=== PATIENT | male | born 1950 | race Caucasian/White ===

== ENCOUNTER → 2021-04-13 14:42 | Outpatient (BNVA) | payer MEDICARE, BC, SELFPAY | PROVIDERS: Referring Provider Student in an Organized Health Care Education/Training Program; Visit Provider Specialist | DX: R41.1 Anterograde amnesia (principal); F41.9 Anxiety disorder, unspecified; F07.81 Postconcussional syndrome; S06.9X9S Unspecified intracranial injury with loss of consciousness of unspecified duration, sequela; Z87.891 Personal history of nicotine dependence; Y93.9 Activity, unspecified | CPT/HCPCS: 96116; 99204; 99205 ==

== ENCOUNTER 2021-05-19 11:18 | Outpatient (CLI) | payer MEDICARE, BC, SELFPAY ==
--- NOTE | 2021-05-19 11:45 | MR_ITS ---
WS: [id number] MRI HEAD WITHOUT CONTRAST TECHNIQUE: Sagittal T1, T2 axial, T2 axial FLAIR, axial and coronal T1 images, axial susceptibility w eighted imaging, axial diffusion weighted images, and coronal T2 images were obtained. CLINICAL INFORMATION: R41.82 - Altered mental status, unspecified COMPARISON: None. FINDINGS: No evidence of restricted diffusion to suggest acute ischemia. Ventricular system and basal cisterns are patent. Normal posterior fossa. Normal vascular flow voids at the skull base. No extra-axial flui d collections. No evidence of mass or mass effect. Paranasal sinuses are well aerated. Moderate patchy supratentorial white matter changes compatible with small vessel disease. Mild parenc hymal volume loss. No hemosiderin on susceptibly weighted images. Normal optic chiasm and pituitary i nfundibulum. Incidental small hippocampal sulcal cysts. Temporal lobes hippocampal formations are nor mal in appearance. Mostly empty sella. Visualized upper cervical canal is patent. MR/MR head wo con* [id number] IMPRESSION: 1. No evidence of restricted diffusion to suggest acute ischemia. 2. Moderate small vessel changes with mild parenchymal volume loss. 3. Temporal lobes and hippocampal formations are normal in appearance. 4. Normal optic chiasm and pituitary infundibulum. 5. No hemosiderin on susceptibly weighted images.
== END 2021-05-19 11:19 | disposition home or self-care (01) ==
LOC: RADSHAW 11:30
PROVIDERS: Visit Provider Specialist
DX: R41.82 Altered mental status, unspecified (principal)
CPT/HCPCS: 70551

== ENCOUNTER → 2021-06-14 09:43 | Outpatient (BNVA) | payer MEDICARE, BC, SELFPAY | PROVIDERS: PCP Student in an Organized Health Care Education/Training Program; Referring Provider Specialist; Visit Provider Specialist | DX: R56.9 Unspecified convulsions (principal); S06.9X9S Unspecified intracranial injury with loss of consciousness of unspecified duration, sequela; Y93.9 Activity, unspecified; Z87.891 Personal history of nicotine dependence | CPT/HCPCS: 95816 ==

== ENCOUNTER 2021-08-06 10:13 | Outpatient (CLI) | payer MEDICARE, BC, SELFPAY ==
--- NOTE | 2021-08-06 11:00 | MR_ITS ---
WS: [id number] MRI HEAD WITHOUT CONTRAST TECHNIQUE: Sagittal T1, T2 axial, T2 axial FLAIR, axial and coronal T1 images, axial susceptibility w eighted imaging, axial diffusion weighted images, and coronal T2 images were obtained. CLINICAL INFORMATION: S06.9X9A - Unspecified intracranial injury with loss of c... COMPARISON: MRI May 19, 2021 FINDINGS: No evidence of restricted diffusion to suggest acute ischemia. Ventricular system and basal cisterns are patent. Moderate small vessel changes with moderate parenchymal volume lossThis is unchanged sinc e May 19, 2021. Normal posterior fossa. Normal vascular flow voids at the skull base. No extra-axial fluid collection s. No evidence of mass or mass effect. Incidental prominent perivascular spaces in the basal ganglia. Prominent perivascular spaces in the thalami. Incidental parahippocampal sulcal cysts. No hemosiderin on the susceptibility weighted images. Normal optic chiasm and pituitary infundibulum. Mild symmetry atrophy temporal lobes and hippocampal formations. Again seen is the known T2 hyperintense RIGHT intraconal lesion measuring 1.9 x 0.8 x 0.9 CM. Mild ma ss effect on adjacent medial rectus and inferior rectus appears unchanged from previous. Benign partially the sella. MR/MR head wo con* [id number] IMPRESSION: 1. No evidence of restricted diffusion to suggest acute ischemia. 2. Moderate small vessel changes with moderate parenchymal volume loss. 3. No hemosiderin on the susceptibly weighted images. 4. Mild symmetric atrophy, lobes and hippocampal formations. 5. Again seen is the known T2 hyperintense RIGHT intraconal lesion measuring 1 .9 x 0.8 x 0.9 CM. Mild mass effect on the adjacent medial rectus and inferior rectus appears unchanged from previous.
== END 2021-08-06 10:14 | disposition home or self-care (01) ==
LOC: RAD 10:20
PROVIDERS: PCP Student in an Organized Health Care Education/Training Program; Visit Provider Specialist
DX: S06.9X9A Unspecified intracranial injury with loss of consciousness of unspecified duration, initial encounter (principal); X58.XXXA Exposure to other specified factors, initial encounter; G31.9 Degenerative disease of nervous system, unspecified; G93.9 Disorder of brain, unspecified
CPT/HCPCS: 70551

== ENCOUNTER → 2021-10-07 12:37 | Outpatient (BNVA) | payer MEDICARE, BC, SELFPAY | PROVIDERS: PCP Student in an Organized Health Care Education/Training Program; Visit Provider Specialist | DX: R41.3 Other amnesia (principal); F07.81 Postconcussional syndrome; S06.9X9S Unspecified intracranial injury with loss of consciousness of unspecified duration, sequela; Y93.9 Activity, unspecified; D49.89 Neoplasm of unspecified behavior of other specified sites | CPT/HCPCS: 99214 ==

== ENCOUNTER → 2022-04-11 12:49 | Outpatient (BNVA) | payer MEDICARE, BC, SELFPAY | PROVIDERS: PCP Student in an Organized Health Care Education/Training Program; Visit Provider Specialist | DX: F07.81 Postconcussional syndrome (principal); S06.9X9S Unspecified intracranial injury with loss of consciousness of unspecified duration, sequela; H81.10 Benign paroxysmal vertigo, unspecified ear; F03.90 Unspecified dementia, unspecified severity, without behavioral disturbance, psychotic disturbance, mood disturbance, and anxiety; Y93.9 Activity, unspecified | CPT/HCPCS: 99213 ==

== ENCOUNTER → 2023-04-03 12:48 | Outpatient (BNVA) | payer MEDICARE, BC, SELFPAY | PROVIDERS: PCP Student in an Organized Health Care Education/Training Program; Visit Provider Specialist | DX: H81.10 Benign paroxysmal vertigo, unspecified ear (principal); F07.81 Postconcussional syndrome; F02.80 Dementia in other diseases classified elsewhere, unspecified severity, without behavioral disturbance, psychotic disturbance, mood disturbance, and anxiety | CPT/HCPCS: 99214 ==

== ENCOUNTER → 2024-04-03 12:34 | Outpatient (BNVA) | payer MEDICARE, BC, SELFPAY | PROVIDERS: PCP Student in an Organized Health Care Education/Training Program; Visit Provider Specialist | DX: H81.10 Benign paroxysmal vertigo, unspecified ear (principal); R41.3 Other amnesia; F07.81 Postconcussional syndrome; R03.0 Elevated blood-pressure reading, without diagnosis of hypertension | CPT/HCPCS: 99213 ==

== ENCOUNTER → 2025-04-02 13:26 | Outpatient (BNVA) | payer MEDICARE, BC, SELFPAY | PROVIDERS: PCP Student in an Organized Health Care Education/Training Program; Visit Provider Specialist | DX: R41.3 Other amnesia (principal); F07.81 Postconcussional syndrome; R03.0 Elevated blood-pressure reading, without diagnosis of hypertension; H81.13 Benign paroxysmal vertigo, bilateral | CPT/HCPCS: 36415; 82542; 83520; 99214 ==